=== PATIENT | male | born 1940 | race Caucasian/White ===

== ENCOUNTER 2017-07-17 08:58 | Outpatient (CLI) | payer MEDICARE, OTHER ==
[2017-07-17 18:09] LABS: ALBUMIN/GLOBULIN RATIO 1.8 (1.0-2.2); BILIRUBIN,TOTAL 1.1 mg/dL (0.2-1.0); BUN - BLOOD UREA NITROGEN 20 mg/dL (6-20); CALCIUM 9.3 mg/dL (8.5-10.3); CARBON DIOXIDE - CO2 26 mmol/L (21-32); CHLORIDE 104 mmol/L (101-111); CHOLESTEROL 261 mg/dL; CREATININE 0.8 mg/dL (0.6-1.2); GFR - MDRD 94 (>89); GLUCOSE 112 mg/dL (70-100); HDL CHOLESTEROL 52 mg/dL; LDL/HDL RATIO 3.5 (<3.6); POTASSIUM 4.3 mmol/L (3.5-5.0); SODIUM 136 mmol/L (135-145); TOTAL PROTEIN 6.9 g/dL (6.7-8.2); TRIGLYCERIDES 146 mg/dL; VLDL CHOLESTEROL 29 mg/dL
[2017-07-17 18:14] LABS: HEMOGLOBIN A1C 0.58 g/dL
== END 2017-07-17 08:59 | disposition home or self-care (01) ==
LOC: LAB.F 08:58
PROVIDERS: ATTEND Nurse Practitioner Family
DX: R73.01 Impaired fasting glucose (principal); E78.5 Hyperlipidemia, unspecified; Z12.5 Encounter for screening for malignant neoplasm of prostate
CPT/HCPCS: 36415; 80053; 80061; 83036; G0103; 84153

== ENCOUNTER 2017-09-14 21:32 | Outpatient (CLI) | payer MEDICARE, OTHER | END 2017-09-14 21:33 | disposition short-term general hospital (02) | LOC: EMS 21:32 | PROVIDERS: ATTEND Surgery | DX: R55 Syncope and collapse (principal) | CPT/HCPCS: A0170; A0425; A0427 ==

== ENCOUNTER 2017-09-19 14:23 | Outpatient (CLI) | payer MEDICARE, OTHER ==
[2017-09-19 17:45] LABS: BASOPHILS % (AUTO) 0.3 %; EOSINOPHILS # (AUTO) 0.1 10^3/uL (0.0-0.7); EOSINOPHILS % (AUTO) 1.6 %; HCT - HEMATOCRIT 25.2 % (42.0-52.0); HGB - HEMOGLOBIN 8.6 g/dL (14.0-18.0); LYMPHOCYTES # (AUTO) 1.2 10^3/uL (1.5-3.5); LYMPHOCYTES % (AUTO) 13.1 %; MEAN CORPUSCULAR HEMOGLOBIN 31.1 pg (27.0-31.0); MEAN CORPUSCULAR VOLUME 91.6 fL (80.0-94.0); MEAN PLATELET VOLUME 8.8 fL (7.4-11.4); MONOCYTES # (AUTO) 0.7 10^3/uL (0.0-1.0); MONOCYTES % (AUTO) 7.3 %; NEUTROPHILS % (AUTO) 77.7 %; RED BLOOD COUNT 2.75 10^6/uL (4.70-6.10); RED CELL DISTRIBUTION WIDTH 14.7 % (12.0-15.0)
[2017-09-19 17:58] LABS: ALBUMIN/GLOBULIN RATIO 1.2 (1.0-2.2); BILIRUBIN,TOTAL 0.7 mg/dL (0.2-1.0); CALCIUM 8.4 mg/dL (8.5-10.3); POTASSIUM 3.6 mmol/L (3.5-5.0)
== END 2017-09-19 14:24 | disposition home or self-care (01) ==
LOC: LAB.F 14:23
PROVIDERS: ATTEND Family Medicine
DX: Z87.19 Personal history of other diseases of the digestive system (principal); M35.3 Polymyalgia rheumatica
CPT/HCPCS: 36415; 80053; 85025; 85651; 86140

== ENCOUNTER 2017-09-30 11:14 | Outpatient (CLI) | payer MEDICARE, OTHER ==
[2017-09-30 18:39] LABS: BASOPHILS % (AUTO) 0.3 %; EOSINOPHILS # (AUTO) 0.1 10^3/uL (0.0-0.7); EOSINOPHILS % (AUTO) 1.1 %; HCT - HEMATOCRIT 35.6 % (42.0-52.0); HGB - HEMOGLOBIN 11.7 g/dL (14.0-18.0); LYMPHOCYTES % (AUTO) 30.3 %; MEAN CORPUSCULAR HEMOGLOBIN 30.1 pg (27.0-31.0); MEAN CORPUSCULAR HGB CONC 32.9 g/dL (32.0-36.0); MEAN CORPUSCULAR VOLUME 91.5 fL (80.0-94.0); MEAN PLATELET VOLUME 7.9 fL (7.4-11.4); MONOCYTES # (AUTO) 0.7 10^3/uL (0.0-1.0); MONOCYTES % (AUTO) 7.2 %; NEUTROPHILS # (AUTO) 6.1 10^3/uL (1.5-6.6); NEUTROPHILS % (AUTO) 61.1 %; RED BLOOD COUNT 3.89 10^6/uL (4.70-6.10); UNCORRECTED WHITE BLOOD COUNT 9.9 x10^3/uL; WHITE BLOOD COUNT 9.9 x10^3/uL (4.8-10.8)
[2017-09-30 19:01] LABS: ALBUMIN/GLOBULIN RATIO 1.5 (1.0-2.2); BILIRUBIN,TOTAL 0.6 mg/dL (0.2-1.0); BUN - BLOOD UREA NITROGEN 19 mg/dL (6-20); CALCIUM 9.1 mg/dL (8.5-10.3); CARBON DIOXIDE - CO2 23 mmol/L (21-32); CHLORIDE 101 mmol/L (101-111); GFR - MDRD 73 (>89); GLUCOSE 115 mg/dL (70-100); POTASSIUM 3.7 mmol/L (3.5-5.0); SODIUM 135 mmol/L (135-145); TOTAL PROTEIN 6.7 g/dL (6.7-8.2)
== END 2017-09-30 11:15 | disposition home or self-care (01) ==
LOC: LAB.S 11:14
PROVIDERS: ATTEND Family Medicine
DX: Z87.19 Personal history of other diseases of the digestive system (principal)
CPT/HCPCS: 36415; 80053; 85025; 85651; 86140

== ENCOUNTER 2017-10-16 14:43 | Outpatient (CLI) | payer MEDICARE, OTHER ==
[2017-10-16 17:53] LABS: BASOPHILS % (AUTO) 0.4 %; EOSINOPHILS # (AUTO) 0.2 10^3/uL (0.0-0.7); EOSINOPHILS % (AUTO) 2.6 %; HGB - HEMOGLOBIN 12.1 g/dL (14.0-18.0); LYMPHOCYTES # (AUTO) 1.6 10^3/uL (1.5-3.5); MEAN CORPUSCULAR HEMOGLOBIN 29.3 pg (27.0-31.0); MEAN CORPUSCULAR HGB CONC 32.6 g/dL (32.0-36.0); MEAN CORPUSCULAR VOLUME 89.7 fL (80.0-94.0); MEAN PLATELET VOLUME 8.1 fL (7.4-11.4); MONOCYTES # (AUTO) 0.5 10^3/uL (0.0-1.0); MONOCYTES % (AUTO) 8.4 %; NEUTROPHILS # (AUTO) 3.9 10^3/uL (1.5-6.6); NEUTROPHILS % (AUTO) 62.6 %; PLT - PLATELET COUNT 251 10^3/uL (130-450); RED BLOOD COUNT 4.15 10^6/uL (4.70-6.10); RED CELL DISTRIBUTION WIDTH 14.1 % (12.0-15.0); WHITE BLOOD COUNT 6.2 x10^3/uL (4.8-10.8)
[2017-10-16 18:15] LABS: ALBUMIN 4.1 g/dL (3.2-5.5); ALBUMIN/GLOBULIN RATIO 1.5 (1.0-2.2); BILIRUBIN,TOTAL 0.4 mg/dL (0.2-1.0); CREATININE 0.9 mg/dL (0.6-1.2); CRP - C-REACTIVE PROTEIN 2.1 mg/dL (0-1.0); TOTAL PROTEIN 6.9 g/dL (6.7-8.2)
== END 2017-10-16 14:44 | disposition home or self-care (01) ==
LOC: LAB.F 14:43
PROVIDERS: ATTEND Nurse Practitioner Family
DX: K92.2 Gastrointestinal hemorrhage, unspecified (principal)
CPT/HCPCS: 36415; 80053; 85025; 86140

== ENCOUNTER 2017-11-19 14:12 | Outpatient (CLI) | payer MEDICARE, OTHER ==
[2017-11-19 18:15] LABS: HGB - HEMOGLOBIN 12.6 g/dL (14.0-18.0); MEAN CORPUSCULAR HEMOGLOBIN 27.8 pg (27.0-31.0); MEAN CORPUSCULAR HGB CONC 32.8 g/dL (32.0-36.0); MEAN CORPUSCULAR VOLUME 84.8 fL (80.0-94.0); MEAN PLATELET VOLUME 8.3 fL (7.4-11.4); RED BLOOD COUNT 4.52 10^6/uL (4.70-6.10); RED CELL DISTRIBUTION WIDTH 13.6 % (12.0-15.0); WHITE BLOOD COUNT 9.2 x10^3/uL (4.8-10.8)
== END 2017-11-19 14:13 | disposition home or self-care (01) ==
LOC: LAB.F 14:12
PROVIDERS: ATTEND Student in an Organized Health Care Education/Training Program
DX: M35.3 Polymyalgia rheumatica (principal); D50.0 Iron deficiency anemia secondary to blood loss (chronic)
CPT/HCPCS: 36415; 85651; 86140